=== PATIENT | female | born 1970 | race African-American/Black ===

== ENCOUNTER 2019-05-03 13:30 | Emergency (ER) | payer OTHER ==
[~2019-05-03] VITALS: Ht 167.6 cm; Wt 75.0 kg
[2019-05-03] MEDS ORDERED: ACETAMINOPHEN 325MG TABLET PO ONE (16:00)
[2019-05-03] MEDS ORDERED: HYDROCODONE/APAP 7.5/325MG 1 TAB TABLET PO ONE (16:15)
[2019-05-03 16:28] LABS: CHLORIDE 107 mEq/L (98-107)
[2019-05-03 16:31] LABS: BASOPHILS % 1.1 % (0.0-2.0); EOSINOPHILS % 0.5 % (0.0-5.0); HEMATOCRIT. 39.9 % (36.0-48.0); HEMOGLOBIN. 13.9 g/dL (12.0-16.0); LYMPHOCYTES % 43.1 % (20.0-50.0); MEAN CORPUSCULAR HEMOGLOBIN 32.6 pg (28.0-32.0); MEAN CORPUSCULAR VOLUME 93.7 fL (81.0-99.0); MEAN PLATELET VOLUME 8.1 fl (7.4-10.4); MONOCYTES % 6.1 % (2.0-8.0); NEUTROPHILS % 49.2 % (40.0-76.0); PLATELET 381 x1000/uL (130-400); RED BLOOD CELL COUNT 4.26 mill/uL (4.2-5.4); RED CELL DISTRIBUTION WIDTH 12.5 % (11.6-14.6)
[2019-05-03 17:59] LABS: PLATELET ESTIMATE NORMAL
[2019-05-03 18:38] VITALS: BP 132/76
== END 2019-05-03 18:44 | disposition home or self-care (01) ==
LOC: ER 14:19
DX: M54.40 Lumbago with sciatica, unspecified side (principal); R00.1 Bradycardia, unspecified; M19.90 Unspecified osteoarthritis, unspecified site; Z87.440 Personal history of urinary (tract) infections
CPT/HCPCS: 36415; 71045; 72070; 72100; 80053; 85025; 93005; 99284; Z7610